=== PATIENT | female | born 1975 | race Caucasian/White ===

== ENCOUNTER 2016-09-18 08:22 | Emergency (ER) | payer OTHER ==
[2016-09-18 08:09] LABS: BASOPHILS 0.2 %; BASOPHILS ABSOLUTE 0.01 10/3/uL (0.0-0.16); EOSINOPHILS 2.8 %; EOSINOPHILS ABSOLUTE 0.14 10/3/uL (0.0-0.53); HEMOGLOBIN 9.3 g/dL (12.0-16.0); IMMATURE GRANULOCYTES 0.2 %; IMMATURE GRANULOCYTES ABSOLUTE 0.01 10/3/uL (0.0-0.11); LYMPHOCYTES ABSOLUTE 1.22 10/3/uL (0.67-4.30); MEAN CORPUS HGB CONC 32.1 g/dL (32.0-36.0); MEAN CORPUSCULAR HEMOGLOB 27.6 pg (26.0-34.0); MONOCYTES 7.1 %; MONOCYTES ABSOLUTE 0.36 10/3/uL (0.21-1.20); NEUTROPHILS 65.7 %; NEUTROPHILS ABSOLUTE 3.35 10/3/uL (2.02-8.40); RBC DISTRIBUTION WIDTH 14.5 % (12.0-16.0); RED CELL COUNT 3.37 10/6/uL (4.0-5.6)
[2016-09-18 08:10] LABS: ER CBC TAT 0 Hrs 05 Mins; MANUAL DIFF NO %; MEAN CORPUSCULAR VOLUME 86.1 fL (80-100); PLATELET COUNT 189 10/3/uL (150-400); WHITE BLOOD CELLS 5.1 10/3/uL (4.5-10.5)
[2016-09-18 08:16] LABS: INTERNATIONAL NORMAL RATI 1.1 UNITS (-); PARTIAL THROMBO TIME 31.9 SEC (22.5-37.2)
[~2016-09-18 08:22] MED LIST: ABILIFY2 PO; ALBUTEROL NEB INH; AMOXIL500 MG PO; ASA5GR PO; ATRIPLA PO; AUG875 PO; BACDS PO; BACTRIM; CELEXA40 MG PO; CENTRUM TAB1 TAB PO; LYRICA150 MG PO; MCZ25 PO; MORPHINE 60 MG PO; MSCONT60 PO; MULTIVIT/MIN PO; PERCOCET1 TA4 PO; PROVENTSOL INH; PROVHFA INH; PROVHFA PO; REMERON30 MG PO; REMERON45 MG PO; VIST25 PO; WELLXL150 PO; X5 PO; XANAX1 MG PO; XANAX2 MG PO; ZOL100 PO; [UNRECOGNIZED DRUG - CODE] PO; [UNRECOGNIZED DRUG - REMARK] PO
[2016-09-18 08:25] LABS: BUN (BLOOD UREA NITROGEN) 21 MG/DL (6-23); CALCIUM, SERUM 8.5 MG/DL (8.5-10.4); CHEST PAIN PROFILE TAT 0 Hrs 20 Mins; CHLORIDE, SERUM 105 MMOL/L (96-112); CO2 (CARBON DIOXIDE) 27 MMOL/L (24-34); CREATININE 1.08 MG/DL (0.55-1.02); GFR AFRICAN AMERICAN 75 ML/MIN (>=60); GFR NON AFRICAN AMERICAN 65 ML/MIN (>=60); GLUCOSE, SERUM 106 MG/DL (60-99); SODIUM, SERUM 140 MMOL/L (135-148); TROPONIN I <0.02 NG/ML (<0.05)
== END 2016-09-18 10:43 | disposition home or self-care (01) ==
LOC: ER 08:22
PROVIDERS: Emergency Medicine
DX: J18.1 Lobar pneumonia, unspecified organism (principal); F17.200 Nicotine dependence, unspecified, uncomplicated; Z21 Asymptomatic human immunodeficiency virus [HIV] infection status; Z88.8 Allergy status to other drugs, medicaments and biological substances; Z79.899 Other long term (current) drug therapy
CPT/HCPCS: 71010; 71020; 80048; 83735; 84484; 85025; 85610; 85730; 94640; 99285; A9270-GY

== ENCOUNTER 2016-10-27 09:02 | Emergency (ER) | payer OTHER ==
[2016-10-27 08:38] LABS: ASCORBIC ACID (UR NOT ORDER) NEG (NEG); BILIRUBIN, URINE NEGATIVE (NEG); ER URINALYSIS TAT 0 Hrs 12 Mins; KETONE, URINE NEGATIVE (NEG); LEUKOCYTE ESTERASE(NOT OR SMALL (NEG); NITRITE (URINE) NEG (NEG); WBC (NOT ORDERED) (RFLEX) 2 (0-5)
[2016-10-27 08:42] LABS: MEAN CORPUS HGB CONC 32.7 g/dL (32.0-36.0); MEAN CORPUSCULAR HEMOGLOB 27.6 pg (26.0-34.0); MEAN CORPUSCULAR VOLUME 84.4 fL (80-100); MEAN PLATELET VOLUME 10.2 fL (9.2-13.0); RBC DISTRIBUTION WIDTH 13.7 % (12.0-16.0); WHITE BLOOD CELLS 4.6 10/3/uL (4.5-10.5)
[2016-10-27 08:50] LABS: HEMATOCRIT 37.9 % (36.0-48.0); HEMOGLOBIN 12.4 g/dL (12.0-16.0); MANUAL DIFF YES %; PLATELET COUNT 264 10/3/uL (150-400); RED CELL COUNT 4.49 10/6/uL (4.0-5.6)
[2016-10-27 08:57] LABS: CHLORIDE, SERUM 108 MMOL/L (96-112); CO2 (CARBON DIOXIDE) 26 MMOL/L (24-34); GFR AFRICAN AMERICAN 126 ML/MIN (>=60); GFR NON AFRICAN AMERICAN 109 ML/MIN (>=60); GLUCOSE, SERUM 111 MG/DL (60-99); POTASSIUM, SERUM 4.1 MMOL/L (3.5-5.3); SGOT(AST) 12 U/L (5-40); SGPT(ALT) 16 U/L (5-65); SODIUM, SERUM 138 MMOL/L (135-148); TOTAL BILIRUBIN 0.1 MG/DL (0-1.2); TOTAL PROTEIN 8.7 G/DL (6.0-8.5)
[2016-10-27 09:02] LABS: A/G RATIO 0.9 (0.7-1.9); ALKALINE PHOSPHATASE 166 U/L (45-117); BUN (BLOOD UREA NITROGEN) 12 MG/DL (6-23); CALCIUM, SERUM 9.5 MG/DL (8.5-10.4); GLOBULIN 4.7 G/DL (2.5-4.1)
[2016-10-27 09:06] LABS: EOSINOPHILS 1 %; EOSINOPHILS ABSOLUTE (CALC) 0.05 10/3/uL (0.0-0.53); ER DIFF TAT 0 Hrs 30 Mins; LYMPHOCYTES 25 %; LYMPHOCYTES ABSOLUTE (CALC) 1.15 10/3/uL (0.67-4.30); MONOCYTES 8 %; MONOCYTES ABSOLUTE (CALC) 0.37 10/3/uL (0.21-1.20); NEUTROPHILS ABSOLUTE (CALC) 3.04 10/3/uL (2.02-8.40); PLATELET ESTIMATE ADQ (ADEQUATE); RBC MORPHOLOGY NORM (NORMAL); SEGMENTED NEUTROPHIL (0) 66 %; TOTAL NUCLEATED CELLS 100
== END 2016-10-27 09:36 | disposition home or self-care (01) ==
LOC: ER 09:02
PROVIDERS: Nurse Practitioner Family
DX: R30.0 Dysuria (principal); F17.210 Nicotine dependence, cigarettes, uncomplicated; D64.9 Anemia, unspecified; F41.9 Anxiety disorder, unspecified; F32.9 Major depressive disorder, single episode, unspecified; Z88.8 Allergy status to other drugs, medicaments and biological substances; Z79.899 Other long term (current) drug therapy
CPT/HCPCS: 80053; 81001; 83690; 84703; 85025; 87086; 99283

== ENCOUNTER 2016-11-19 16:17 | Emergency (ER) | payer OTHER ==
--- NOTE | ~2016-11-19 | CN ---
Consultation Report [facility] [address] [place]. [address] NAME: KRISTOFER TERRY : 79 STATUS : [facility]#: [id number] AGE: 41 ADM/REG DATE : 11/19/16 MR#: [id number] REPORT SERV DATE: 11/20/16 DICTATED BY: TAMMY PONCE DATE: 11/19/16 REPORT STATUS : Draft TRANSCRIBED BY: MODL DATE: 11/19/16 CONSULTATION NOTE DATE OF CONSULTATION: 11/19/2016 REASON FOR CONSULT: Right thigh abscess. CHIEF COMPLAINT: Thigh pain and drainage. HISTORY OF PRESENT ILLNESS: This is a 41-year-old female with past medical history significant for IV drug use, HIV, and hepatitis who has had multiple admissions and operative procedures for drainage of various skin abscesses over her entire body. She presents today with a five-day history of an additional abscess in her right thigh which she states is the worst one that she has had to date. She did present to her primary care physician roughly 10 days ago with what she thought was an abscess that was forming and was placed on outpatient antibiotic therapy with Bactrim. Initially, she thought it responded but over the last five days, it has gone acutely worse, indurated, erythematous with moderate volume drainage over the last four days. She denies any fever or chills or weight loss. She denies any trauma to the area and does not feel that she would have stuck any needles in that area. She was most recently drained with multiple abscesses in July of this year which showed antibiotic resistance to clindamycin. She denies any numbness, tingling, or change in range of motion of her lower extremity. She has no other abscesses. To complicate the workup of this patient, the patient is refusing recommended medical therapy of inpatient admission with IV antibiotic administration and open incision and drainage in the operating room. She recently ingested a meal and drank roughly 20 minutes prior to this consultation. REVIEW OF SYSTEMS: Review of systems is negative except as per HPI. PAST MEDICAL HISTORY: 1. HIV positive. 2. Hepatitis C. 3. History of abscess. 4. Chronic pain on current methadone. 5. IV drug abuse. 6. Anxiety and depression. 7. History of anemia. PAST SURGICAL HISTORY: 1. LEEP procedure in the past. 2. Multiple incision and drainages of abscess at least four in the last year. MEDICATIONS: 1. Albuterol. Consultation Report [facility] [address] [place]. [address] NAME: KRISTOFER TERRY : 79 STATUS : [facility]#: [id number] AGE: 41 ADM/REG DATE : 11/19/16 MR#: [id number] REPORT SERV DATE: 11/20/16 DICTATED BY: TAMMY PONCE DATE: 11/19/16 REPORT STATUS : Draft TRANSCRIBED BY: JAKY DATE: 11/19/16 2. Xanax. 3. Atripla. 4. Currently on 10 days of Bactrim therapy. ALLERGIES: HALDOL CAUSES NECK SWELLING. FAMILY HISTORY: The patient denies any known history of MRSA. SOCIAL HISTORY: The patient is disabled and lives at home with her mother. She endorses use of IV drug use in the past though states that she is on methadone and off drugs for now. She denies use of alcohol or tobacco. PHYSICAL EXAMINATION: VITAL SIGNS: The patient is afebrile with stable vital signs with the exception of tachycardia at 105. GENERAL APPEARANCE: She is alert, oriented, and somewhat anxious and frustrated. She is refusing admission. She is accompanied by her mother. HEAD, EYES, EARS, NOSE, AND THROAT: There is no scleral icterus. Extraocular muscles are grossly intact. There are no facial lesions or facial droop. No oral lesions. Mucous membranes and conjunctiva are pink and moist. NECK: Examination of the neck reveals no thyromegaly. Trachea is midline. CHEST EXAM: Respirations are nonlabored. Breath sounds are clear. ABDOMEN: Soft, nondistended. No hernias. No inguinal hernias. EXTREMITIES: Full range of motion x4. Joints are without deformities. She has multiple tattoos. There is a roughly 15-20 cm indurated area on the right thigh over the greater trochanter with areas of fluctuance underneath and a few areas of open drainage though not much is being expressed at this time. It is not amenable to bedside drainage due to the size. Ultrasound placed on the thigh shows some loculated areas and definite fluid beneath the area of induration. PSYCHIATRIC EXAM: Anxious and somewhat irritated at being in the hospital. Does not want to be admitted. Her affect is normal. Speech patterns are normal. NEUROLOGIC EXAM: No gross focal deficits. Gait is normal. LABORATORY STUDIES: Significant for a white count of 6.1, hemoglobin 10.9, platelet count 258. Comprehensive metabolic panel is within normal limits with the exception of slightly elevated glucose at 123, an elevated alkaline phosphatase of 139, otherwise within normal limits. We do not have any current culture data, however, culture data from October of last year did show beta hemolytic Streptococcus with resistance to tetracycline, erythromycin, and clindamycin. Given the fact the patient has been on Bactrim therapy for the last 10 days, we would not place the patient on this, however, it is sensitive to ampicillin. ASSESSMENT AND PLAN: This is a 41-year-old female with HIV and has recurrent abscess, now with one on her right thigh. It is not amenable to bedside drainage. She was advised on Consultation Report [address] [place]. [address] NAME: KRISTOFER TERRY : 79 STATUS : [facility]#: [id number] AGE: 41 ADM/REG DATE : 11/19/16 MR#: [id number] REPORT SERV DATE: 11/20/16 DICTATED BY: TAMMY PONCE DATE: 11/19/16 REPORT STATUS : Draft TRANSCRIBED BY: JAKY DATE: 11/19/16 multiple occasions that the ideal treatment would be admission to the hospital with IV antibiotic therapy and control drainage in the operating room, however, she is refusing this advice at this time. Additionally, the patient did just ingest a meal and a large can of Sprite so her case would have to be pushed back for number of hours based on accepted anesthesia recommendations. Given the patient's refusal of recommended care, we have done what we can do to address her situation. She will not accept admittance to the hospital so we have recommended discharge with appropriate oral antibiotics, and I have scheduled her in the operating room tomorrow. She is instructed not to eat or drink anything after midnight and to take her antibiotics as instructed upon leaving the hospital. She is currently receiving a dose of vancomycin. As such, we will plan to have the patient back for outpatient incision and drainage of the thigh abscess with instructions on home care. DICTATED BY: MD JOSE ALBERTO Rutledge/JAKY Tammy Ponce MD / [id number] CC: Johnny Morris M.D.
[2016-11-19 15:14] LABS: BASOPHILS 0.2 %; BASOPHILS ABSOLUTE 0.01 10/3/uL (0.0-0.16); EOSINOPHILS 2.8 %; EOSINOPHILS ABSOLUTE 0.17 10/3/uL (0.0-0.53); HEMOGLOBIN 10.9 g/dL (12.0-16.0); IMMATURE GRANULOCYTES 0.3 %; IMMATURE GRANULOCYTES ABSOLUTE 0.02 10/3/uL (0.0-0.11); LYMPHOCYTES 22.9 %; LYMPHOCYTES ABSOLUTE 1.39 10/3/uL (0.67-4.30); MEAN CORPUS HGB CONC 32.8 g/dL (32.0-36.0); MEAN CORPUSCULAR VOLUME 82.4 fL (80-100); MEAN PLATELET VOLUME 9.9 fL (9.2-13.0); MONOCYTES 5.4 %; MONOCYTES ABSOLUTE 0.33 10/3/uL (0.21-1.20); NEUTROPHILS 68.4 %; NEUTROPHILS ABSOLUTE 4.16 10/3/uL (2.02-8.40); PLATELET COUNT 258 10/3/uL (150-400); RBC DISTRIBUTION WIDTH 14.9 % (12.0-16.0); RED CELL COUNT 4.03 10/6/uL (4.0-5.6); WHITE BLOOD CELLS 6.1 10/3/uL (4.5-10.5)
[2016-11-19 15:19] LABS: HEMATOCRIT 33.2 % (36.0-48.0); MANUAL DIFF NO %
[2016-11-19 16:16] LABS: CALCIUM, SERUM 8.7 MG/DL (8.5-10.4); CHLORIDE, SERUM 108 MMOL/L (96-112); CO2 (CARBON DIOXIDE) 26 MMOL/L (24-34); CREATININE 0.83 MG/DL (0.55-1.02); GFR AFRICAN AMERICAN 103 ML/MIN (>=60); GFR NON AFRICAN AMERICAN 89 ML/MIN (>=60); GLUCOSE, SERUM 123 MG/DL (60-99); SGPT(ALT) 22 U/L (5-65); SODIUM, SERUM 138 MMOL/L (135-148); TOTAL BILIRUBIN 0.3 MG/DL (0-1.2); TOTAL PROTEIN 7.4 G/DL (6.0-8.5)
[2016-11-19 16:18] LABS: A/G RATIO 0.7 (0.7-1.9); ALBUMIN 3.1 G/DL (3.5-5.0); ALKALINE PHOSPHATASE 139 U/L (45-117); BUN (BLOOD UREA NITROGEN) 18 MG/DL (6-23); GLOBULIN 4.3 G/DL (2.5-4.1); POTASSIUM, SERUM 4.9 MMOL/L (3.5-5.3); SGOT(AST) 34 U/L (5-40)
[2016-11-19] MEDS ORDERED: PYR200 PO (17:55)
== END 2016-11-19 17:30 | disposition home or self-care (01) ==
LOC: ER 16:17
PROVIDERS: Nurse Practitioner Acute Care
DX: L02.415 Cutaneous abscess of right lower limb (principal); Z86.19 Personal history of other infectious and parasitic diseases; F32.9 Major depressive disorder, single episode, unspecified; F41.9 Anxiety disorder, unspecified; F17.200 Nicotine dependence, unspecified, uncomplicated; Z88.8 Allergy status to other drugs, medicaments and biological substances; Z79.899 Other long term (current) drug therapy
CPT/HCPCS: 80053; 85025; 87040; 96374; 96375; 99283; J1170; J2405; J3370

== ENCOUNTER 2016-11-20 08:55 | Day surgery (SDC) | payer OTHER ==
--- NOTE | ~2016-11-20 | OP ---
Record Of Operation [facility] [address] [place]. [address] NAME: KRISTOFER TERRY : 79 STATUS : [facility]#: [id number] AGE: 41 ADM/REG DATE : 11/20/16 MR#: [id number] REPORT SERV DATE: 11/25/16 DICTATED BY: TAMMY PONCE DATE: 11/24/16 REPORT STATUS : Draft TRANSCRIBED BY: JAKY DATE: 11/24/16 DATE OF PROCEDURE: PREOPERATIVE DIAGNOSIS: Right thigh abscess. POSTOPERATIVE DIAGNOSIS: Right thigh abscess. PROCEDURE: Incision and drainage of right thigh abscess. SURGEON: Tammy Ponce MD. RESIDENT: Mike Arriaza MD. ANESTHESIA: General. FINDINGS: Right thigh abscess with purulent material. SPECIMEN: Right thigh cultures x2. INDICATION FOR PROCEDURE: A 41-year-old female with a history of IV drug abuse presents with worsening fluctuance, right thigh over her greater trochanter abscess. Risks, benefits, and alternatives discussed in length with the patient, the patient wished to proceed. DESCRIPTION OF PROCEDURE: After informed consent was obtained, the patient brought back to the operative suite and placed in the sit-up position with the bump under her right hip. The patient prepped and draped in normal sterile fashion after general endotracheal anesthesia, preoperative antibiotics were given. There was a large 10 x 10 cm area of erythema in the center with the fluctuant area in the middle. There were three areas that had a nidus of inflammation. These areas were opened with cruciate incision. When this was done, there was a large amount of purulent material expressed. Cultures were obtained at this time. There were three areas that were open, two areas distally from the leg were connected with once the loculations were broken up with the hemostatic Jazmin clamp. A [place] drain was placed between the three counter incisions. This was done to enable extra drainage from the site. Once the [place] was placed, the wound was thoroughly irrigated with normal saline. A sterile dressing was applied. The patient tolerated the procedure well and transferred to recovery in stable condition. DICTATED BY: Mike Arriaza MD CB/JAKY Tammy Ponce MD / [id number] Record Of Operation [address] [place]. [address] NAME: KRISTOFER TERRY : 79 STATUS : [facility] PAT#: [id number] AGE: 41 ADM/REG DATE : 11/20/16 MR#: [id number] REPORT SERV DATE: 11/25/16 DICTATED BY: TAMMY PONCE DATE: 11/24/16 REPORT STATUS : Draft TRANSCRIBED BY: JAKY DATE: 11/24/16 CC: Tammy Ponce MD
[~2016-11-20 08:55] MED LIST changes: +PYR200 PO
== END 2016-11-20 15:58 | disposition home or self-care (01) ==
LOC: SDC 08:55
PROVIDERS: Surgery
PROC: 0H9HXZZ Drainage of Right Upper Leg Skin, External Approach (ICD-10-PCS; principal; 2016-11-20 10:30)
DX: L02.415 Cutaneous abscess of right lower limb (principal); F41.9 Anxiety disorder, unspecified; F32.9 Major depressive disorder, single episode, unspecified; Z88.8 Allergy status to other drugs, medicaments and biological substances; Z98.890 Other specified postprocedural states
CPT/HCPCS: 84703; 87015; 87070; 87075; 87077; 87102; 87116; 87186; 87205; J0690; J1170; J2250; J2370; J3010